=== PATIENT | male | born 2005 | race Caucasian/White ===

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

== ENCOUNTER 2024-11-12 17:24 | Emergency (ER) | payer SELFPAY ==
[2024-11-12 17:26] VITALS: BP 158/93; PULSE 89; RESP 18; TEMP 36.9; O2SAT 99
[2024-11-12 17:29] VITALS: BP 158/93; PULSE 89; RESP 18; TEMP 36.9; O2SAT 99
--- NOTE | 2024-11-12 17:41 | ED.GENADUL_ITS ---
Discharge Plan Disposition Patient Disposition: Home Condition: Good Discharge Details Chief Complaint: RespSymp Clinical Impression: Influenza Primary Care Provider: Unknown,Unknown ED Provider: Mariam Glez Home Meds and New Rx's Prescriptions: No Action albuterol sulfate [ProAir HFA] 90 mcg/actuation HFA aerosol inhaler 2 puff Inhalation Q4H PRN Qty: 8.5 1RF Rx Instructions: 2 puffs with spacer every 4hr as needed Discharge Instructions Instructions: Flu, Adult ED Additional Instructions: Use your inhaler at home as prescribed if needed. Call your primary care doctor in the morning to schedule an appointment to followup on your visit today. At that visit discuss your blood pressure which is high here today. Return to the emergency department for new or worsening symptoms including difficulty breathing, chest pain, or if you have any other concerns. It is possible to develop pneumonia after a viral infection so just because that is not the case today does not mean that if you are feeling worse in a week you do not have pneumonia then. HPI General Mode of arrival: ambulatory . Date/Time Provider Initiated Documentation: 11/12/24 17:33 . Limitations to Documentation: no limitations . Information obtained by: patient . HPI Narrative: 19yo male with hx asthma on prn albuterol presenting for cough, fatigue, and shortness of breath. Symptoms started last night. Brother with similar symptoms, diagnosed with pneumonia recently after one week of cough/fever. Patient with subjective fevers, has not checked his temp. Feels generally fatigued. Otherwise in his usual state of health with no rash, chest pain, lightheadeness, nausea, vomiting, abdominal pain, LE edema, or other concerns. Related Data Home Medications ?Medication ?Instructions ?Recorded ?Confirmed albuterol sulfate 90 mcg/actuation 2 puff inhalation Q4H PRN #8.5 06/06/21 11/12/24 aerosol inhaler (ProAir HFA) grams Previous Rx's ?Medication ?Instructions ?Recorded albuterol sulfate 90 mcg/actuation 2 puff inhalation Q4H PRN #8.5 06/06/21 aerosol inhaler (ProAir HFA) grams Allergies Allergy/AdvReac Type Severity Reaction Status Date / Time CATS Allergy Mild Wheezing Uncoded 11/12/24 17:29 General Stated Complaint: RespSymp COLT: 4 Review of Systems Narrative: see HPI Exam Narrative Exam Narrative: General: Alert, well appearing, well nourished, in no acute distress. Head: Normocephalic, atraumatic Neck: Trachea midline, ?Neck supple. ENT: ?MMM.? No oropharygeal lesions or exudate. Cardiac: ?RRR, no murmurs appreciated Resp: No respiratory distress. CTAB. Abd: ?Soft, non-distended, nontender Extremities: ?No deformities.? No peripheral edema. Neurologic: GCS 15. ? Moves all extremities freely against gravity Course Vital Signs Vital signs: Vital Signs Temperature 36.9 C 11/12/24 17:26 Pulse 89 11/12/24 17:26 Respiratory Rate 18 11/12/24 17: Blood Pressure 158/93 H 11/12/24 17: Pulse Oximetry 99 11/12/24 17:26 Temperature 36.9 C 11/12/24 17:29 Pulse 89 11/12/24 17:29 Respiratory Rate 18 11/12/24 17:29 Blood Pressure 158/93 H 11/12/24 17:29 Pulse Oximetry 99 11/12/24 17:29 Medical Decision Making 19yo male with hx asthma on prn albuterol presenting for cough, fatigue, and shortness of breath since last night. Brother with similar symptoms x 1 week. Slightly hypertensive on arrival, vital signs otherwise reassuring. No respiratory distress on exam; lungs CTAB. Well appearing. Not septic. Not suggestive of ACS, pulmonary embolism; would not get labs. No significant asthma exacerbation based on exam. Unlikely pneumonia given duration of symptoms, afebrile, lungs clear; would not get imaging at this time. Suspect most likely viral URI. POC covid/flu sent and positive for influenza B. Discussed risks/benefits of tamiflu and pt declined. Advised symptomatic treatment at home and PCP followup for hypertension. Discharged home; discharge instructions and return precuations were reviewed with patient who verbalized understanding. All questions were answered and he is in full agreement with the plan. Quality:SDOH Health Related Social Needs: No Data to Display PFSH All Active Problems (Updated 11/12/24 @ 18:10 by Mariam Glez MD) Influenza (Acute) Medical History (Updated 11/12/24 @ 18:10 by Mariam Glez MD) Exercise-induced asthma Family History Father No family history of sudden Newman esophagus Brother GERD (gastroesophageal reflux disease) Social History Smoking/Tobacco Use Status: Never Smoking risk assessment performed?: Yes Alcohol Intake: never Drug use: Never Substance use type: does not use Do you feel safe at home: Yes Do you feel safe in your relationship?: Yes
[2024-11-12 18:27] VITALS: BP 163/72; PULSE 97; RESP 18; O2SAT 98
[2024-11-12 18:29] VITALS: BP 163/72; PULSE 97; RESP 18; O2SAT 98
== END 2024-11-12 18:30 | disposition home or self-care (01) ==
LOC: ER 18:32
PROVIDERS: Emergency Provider Student in an Organized Health Care Education/Training Program
DX: J10.1 Influenza due to other identified influenza virus with other respiratory manifestations (principal)
CPT/HCPCS: 87426; 99283